=== PATIENT | male | born 1985 | race Caucasian/White ===

== ENCOUNTER 2019-06-17 08:25 | Emergency (ER) | payer SELFPAY ==
--- NOTE | 2019-06-17 08:56 | ED Physician Documentation ---
History of Present Illness - Stated complaint Stated Complaint: R HAND SWELLING - Chief complaint Chief Complaint: Ext Problem - History obtained from History obtained from: Patient - History of Present Illness Timing: How many days ago (7) Pain level max: 10 Pain level now: 8 - Additonal information Additional information: This is a 34-year-old man who presents with complaints that 1 week ago he noticed that his right thumb with swelling little bit around the pad has been increasing in pain now to where he has pain all the way down the to the wrist and also the radial aspect of his right index finger was hurting. 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 He took some Advil this morning the pain was down for up to an 8 out of 10 but the pain is been bad enough that he has not been able to sleep. He is never had anything like this happen before. There was no injury to the thumb. No fever. He is a smoker. Denies any allergies. Review of Systems Constitutional: denies: Fever Musculoskeletal: reports: Extremity pain PD PAST MEDICAL HISTORY - Past Medical History Cardiovascular: None Respiratory: None Neuro: None Endocrine/Autoimmune: None GI: None : None HEENT: None Psych: None Musculoskeletal: None Derm: None - Past Surgical History Past Surgical History: Yes General: Hiatal hernia repair - Present Medications Home Medications: Ambulatory Orders Medication Instructions Recorded Confirmed Amox/Clav 875/125 [Augmentin] 1 each PO Q12H #20 tablet 06/17/19 Hydrocodone/Acetaminophen 1 - 2 each PO Q6H PRN #14 tablet 06/17/19 [Hydrocodon-Acetaminophen 5-325] - Allergies Allergies/Adverse Reactions: Allergies Allergy/AdvReac Type Severity Reaction Status Date / Time No Known Drug Allergies Allergy Verified 06/17/19 08:31 - Social History Does the pt smoke?: Yes Smoking Status: Current every day smoker Does the pt drink ETOH?: Yes ETOH Use: Liquor Does the pt have substance abuse?: No - Immunizations Immunizations are current?: Yes - POLST Patient has POLST: No PD ED PE NORMAL - Vitals Vital signs reviewed: Yes - General General: Alert and oriented X 3, No acute distress, Well developed/nourished - HEENT HEENT: Atraumatic, PERRL, Moist mucous membranes - Cardiac Cardiac: RRR - Respiratory Respiratory: No respiratory distress - Extremities Extremities: Other (The right thumb has obvious erythema around the proximal nail fold but no subungual pus or hematoma. The pad is very edematous it stretched tight enough that there is actually some blanching and right in the central aspect is an area of obvious hemorrhage containing some pus. There is no pain with palpation on the flexor tendon. Is painful to flex the joint but the joint itself does not appear to be swollen and there is no pain with palpation at the IP joint. The right index finger appears normal with full flexion at the MCP PIP and DIP joints. There is no swelling or erythema noted of that digit and no pain with palpation down the flexor tendon into the palm.) Results - Vitals Vitals: Vital Signs - 24 hr 06/17/19 08:31 Temperature 36.9 C Heart Rate 81 Respiratory 16 Rate Blood Pressure 121/85 H O2 Saturation 96 Oxygen O2 Source Room air Procedures - Abscess I&D (location) Irene Pepito thumb Preparation: Chlorhexadine, Lidocaine 2 %, Other ([facility] drain used for tourniquet) Incision: Incised with scalpel, Purulent drainage, Loculations broken, Irrigated, Packed, Culture obtained Other: Pt tolerated well, Dressing applied, Antibiotic prescribed PD MEDICAL DECISION MAKING - ED course Complexity details: d/w patient ED course: There wasIn his thumb pad pus. Blunt dissection with scissors were used to break up the loculations until there was no further pus draining and it was irrigated with saline. Was packed with plain gauze packing and the patient is instructed on wound care. He is placed on Augmentin 875 twice daily, encouraged to use ibuprofen and given a prescription for hydrocodone to help with the acute pain. He will be given a note for off work tonight. Recheck in 2 days. Departure - Departure Disposition: 01 Home, Self Care Clinical Impression: Irene leann wells of right hand Condition: Good Instructions: ED Abscess IandD Follow-Up: [facility] [Provider Group] Prescriptions: Amox/Clav 875/125 [Augmentin] 1 each PO Q12H #20 tablet Hydrocodone/Acetaminophen [Hydrocodon-Acetaminophen 5-325] 1 - 2 each PO Q6H PRN #14 tablet PRN Reason: pain Comments: Keep the bandage clean and dry and try and keep it in place for 48 hours before removal. If it gets wet you should remove it immediately and just put a dry dressing on it. If you need to change the bandage try not to pull the packing out of the incision. Start the Augmentin today and take 1 twice a day. I would recommend that you take probiotics with this to help protect the gut bacteria. These can be purchased [id number] at the pharmacy. Take ibuprofen 3 to 4 tablets every 8 hours with food for the next 48 hours. Take the hydrocodone if needed for pain but do not take additional Tylenol with it or drive or operate machinery. You should be re-seen in 2 days to take the dressing down and packing removal and reassessment on healing. If symptoms are worsening prior to that with progression into the wrist or forearm particularly with swelling or redness, you have a fever or vomiting he should return immediately for reevaluation. Forms: Activity restrictions
[2019-06-17] MEDS ORDERED: LIDOCAINE-MPF 2% 5 ML VIAL SUBQ STA (09:05)
[2019-06-17 09:51] VITALS: BP 137/91
[2019-06-17] MEDS ORDERED: LIDOCAINE 2% 50 ML MDV SUBQ SCH (10:00)
== END 2019-06-17 09:53 | disposition home or self-care (01) ==
LOC: ED 08:25
DX: L03.011 Cellulitis of right finger (principal); F17.200 Nicotine dependence, unspecified, uncomplicated
CPT/HCPCS: 26011; 87070; 87181; 87205; 99283; 99284

== ENCOUNTER 2019-06-25 09:34 | Emergency (ER) | payer SELFPAY ==
[2019-06-25] MEDS ORDERED: BUPIVACAINE 0.5% PF 10 ML VIAL IM ONE (10:09)
[2019-06-25] MEDS ORDERED: BUFFERED LIDOCAINE 10 ML SYRINGE SUBQ STA (10:09)
--- NOTE | 2019-06-25 11:03 | ED Physician Documentation ---
PD HPI WOUND RECHECK - Stated complaint Stated Complaint: FINGER LAC FOLLOW UP - Chief complaint Chief Complaint: Ext Problem - Histroy obtained from History obtained from: Patient - History of Present Illness Location: Right Upper Extremity Timing - onset: How many weeks ago (3) Associated symptoms: Redness, Swelling, Drainage, Pain Similar symptoms before: Diagnosis (felon) Recently seen: Emergency Dept - Additional information Additional information: 34-year-old male has developed a felon in his right thumb and he had this lanced and drained here in the emergency department 8 days ago he had marked improvement in both his pain and Swelling. 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 He is noted increased swelling and pain over the last 2 days despite continuing his antibiotic. He has been switched from Augmentin to sulfamethoxazole trimethoprim. Review of Systems Constitutional: reports: Fatigue. denies: Fever Nose: denies: Congestion Throat: denies: Sore throat Respiratory: denies: Dyspnea, Cough GI: denies: Vomiting PD PAST MEDICAL HISTORY - Past Medical History Past Medical History: Yes Cardiovascular: None Respiratory: None Neuro: None Endocrine/Autoimmune: None GI: None : None HEENT: None Psych: None Musculoskeletal: None Derm: None - Past Surgical History Past Surgical History: Yes General: Hiatal hernia repair - Present Medications Home Medications: Ambulatory Orders Medication Instructions Recorded Confirmed Amox/Clav 875/125 [Augmentin] 1 each PO Q12H #20 tablet 06/17/19 Hydrocodone/Acetaminophen 1 - 2 each PO Q6H PRN #14 tablet 06/17/19 [Hydrocodon-Acetaminophen 5-325] Sulfamethox/Trimeth 800/160 1 each PO BID #14 tablet 06/25/19 [Bactrim Ds 800/160] - Allergies Allergies/Adverse Reactions: Allergies Allergy/AdvReac Type Severity Reaction Status Date / Time No Known Drug Allergies Allergy Verified 06/25/19 09:52 - Social History Does the pt smoke?: Yes Smoking Status: Current every day smoker Does the pt drink ETOH?: Yes Does the pt have substance abuse?: No - Immunizations Immunizations are current?: Yes - POLST Patient has POLST: No PD ED PE NORMAL - Vitals Vital signs reviewed: Yes (hypertensive ) - General General: Alert and oriented X 3, No acute distress, Well developed/nourished, Other (AOB) - HEENT HEENT: Atraumatic, PERRL, EOMI - Respiratory Respiratory: No respiratory distress - Derm Derm: Normal color, Warm and dry, No rash - Extremities Extremities: Other (There is swelling to the distal thumb with a patch of skin over the site of prior I&D that is pale in color/devitalized. The area is draining from the proximal portion of the wound and is tender. There is a new blister along the base of the thumb about 1/3 of the distance around the thumb. It is not tender but fluctuant. The swelling in general is improved from prior by report of the patient, nurse taking care of him on both visits and from the description provided by Dr. London. There is no tenderenss today to the palm of the hand the index or the wrist. There is no sign of tenosynovitis. 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, No motor deficit, No sensory deficit, Normal speech Eye Opening: Spontaneous Motor: Obeys Commands Verbal: Oriented GCS Score: 15 - Psych Psych: Normal mood, Normal affect Results - Vitals Vitals: Vital Signs - 24 hr 06/25/19 06/25/19 09:47 11:12 Temperature 36.7 C 36.7 C Heart Rate 99 87 Respiratory 14 16 Rate Blood Pressure 118/96 H 124/95 H O2 Saturation 99 97 Oxygen O2 Source Room air Procedures - Abscess I&D (location) thumb Preparation: Confirmed with ultrasound, Chlorhexadine, Other (lidocaine/bupivicaine digital block with local suplimentation.) Incision: Incised with scalpel, Loculations broken, Irrigated, Other (A second blister is also inscised with minimal drainage. There is not much drainage from either area. The swelling is some improved at discharge.) Other: Dressing applied, Antibiotic prescribed PD MEDICAL DECISION MAKING - ED course Complexity details: reviewed results, re-evaluated patient, considered differential, d/w patient ED course: 34-year-old male with a felon that was incised and drained 8 days ago has noted increase in his swelling and tenderness to the distal portion of his thumb. He is not having the same swelling that he had with his whole thumb and running up into the index finger and down into the hand. Today it is confined to the distal portion of the thumb and there is a new blister as well. I queried the patient about injury to the hand and he adamantly admitted he did not have any idea of any kind of injury he possibly could have had to his hand including prolonged compressive forces. At the conclusion of the procedure he did indicate that he had been using a bandage to try and hold the edges of the wound together I recommended he discontinue this practice and I suspect this is why he had the increased swelling. Possibly why he had the blister as well. The expectation is improvement with a change in his dressing. He is prescribed another 7 days of Septra and he is taken off work for 3 days. Departure - Departure Disposition: 01 Home, Self Care Clinical Impression: Felon of finger of right hand Condition: Stable Instructions: ED Abscess IandD Follow-Up: Daylin Benedict PA [Provider Admit Priv/Credential] - Prescriptions: Sulfamethox/Trimeth 800/160 [Bactrim Ds 800/160] 1 each PO BID #14 tablet Forms: Activity restrictions Discharge Date/Time: 06/25/19 11:18
[2019-06-25 11:13] VITALS: BP 124/95
== END 2019-06-25 11:18 | disposition home or self-care (01) ==
LOC: ED 09:34
DX: L03.011 Cellulitis of right finger (principal); F17.200 Nicotine dependence, unspecified, uncomplicated
CPT/HCPCS: 26011; 99282; 99284

== ENCOUNTER 2022-12-30 09:54 | Outpatient (CLI) | payer SELFPAY | END 2022-12-30 23:59 | disposition short-term general hospital (02) | LOC: EMS 09:54 | DX: K92.0 Hematemesis (principal); K92.1 Melena; I95.9 Hypotension, unspecified | CPT/HCPCS: A0425; A0427 ==

== ENCOUNTER 2023-08-05 02:31 | Emergency (ER) | payer SELFPAY ==
--- NOTE | 2023-08-05 02:59 | ED Physician Documentation ---
History of Present Illness - Stated complaint Stated Complaint: ABD PX - Chief complaint Chief Complaint: Abd Pain - History obtained from History obtained from: Patient - Additonal information Additional information: 38yM with pmh alcohol abuse, recently sober 1 week ago, p/w malaise, weakness, abdominal ascites and pain over the past couple weeks, worsening X 2 days. denies fever, n/v/d urinary sx, cough or cp. he does have mild subjective dyspnea. PD PAST MEDICAL HISTORY - Past Medical History Past Medical History: Yes Cardiovascular: None Respiratory: None Neuro: None Endocrine/Autoimmune: None GI: Cirrhosis : None HEENT: None Psych: None Musculoskeletal: None Derm: None - Past Surgical History Past Surgical History: Yes General: Hiatal hernia repair - Present Medications Home Medications: Ambulatory Orders Medication Instructions Recorded Confirmed No Known Home Medications 08/05/23 08/05/23 - Allergies Allergies/Adverse Reactions: Allergies Allergy/AdvReac Type Severity Reaction Status Date / Time No Known Drug Allergies Allergy Verified 08/05/23 02:53 - Social History Does the pt smoke?: Yes Smoking Status: Current every day smoker Does the pt drink ETOH?: Yes Does the pt have substance abuse?: No Substance Use and Type: Marijuana - Immunizations Immunizations are current?: Yes - POLST Patient has POLST: No PD ED PE NORMAL - Vitals Vital signs reviewed: Yes - General General: Alert and oriented X 3, No acute distress, Well developed/nourished - HEENT HEENT: Atraumatic, PERRL, EOMI - Neck Neck: Supple, no meningeal sign - Cardiac Cardiac: Other (tachycardic rate, regular rhythm) - Respiratory Respiratory: No respiratory distress, Clear bilaterally - Abdomen Abdomen: Other (moderately distended, soft abdomen. discomfort to palpation diffusely) - Rectal Rectal: Pt declined - Derm Derm: Normal color, Warm and dry Results - Vitals Vitals: Vital Signs - 24 hr 08/05/23 08/05/23 02:35 02:52 Temperature 37.6 C Heart Rate 116 H 80 Respiratory 16 19 Rate Blood Pressure 110/56 L 116/60 O2 Saturation 100 98 Oxygen O2 Source Room air - Labs Labs: Laboratory Tests 08/05/23 08/05/23 08/05/23 02:58 02:58 02:58 WBC 10.8 RBC 2.33 L Hgb 5.4 L* Hct 17.8 L* MCV 76.4 L MCH 23.2 L MCHC 30.3 L RDW 28.5 H Plt Count 141 Neut # (Auto) 6.5 Lymph # (Auto) 1.5 Blair # (Auto) 2.5 H Eos # (Auto) 0.2 Baso # (Auto) 0.1 Absolute Nucleated RBC 0.12 Total Counted CASINO BANKER Band Neuts % (Manual) CASINO [employer]ANKER Reactive Lymphs % (Man) CASINO BANKER Abnorm Lymph % (Manual) CASINO BANKER Nucleated RBC % 1.1 Neutrophils # (Manual) CASINO [employer]ER Lymphocytes # (Manual) CASINO [employer]ER Monocytes # (Manual) CASINO B[employer]ER Eosinophils # (Manual) CASINO B[employer]ER Basophils # (Manual) CASINO [employer]ER Differential Comment MANUAL=AUTO DIFF Platelet Estimate NORMAL (130-450,000) Platelet Morphology RARE GIANT PLATELETS RBC Morph Micro Appear 2+ POIKILOCYTOSIS PT 21.3 H INR 2.0 H Sodium 125 L Potassium 3.6 Chloride 94 L Carbon Dioxide 24 Anion Gap 7.0 BUN 12 Creatinine 0.7 Estimated GFR (MDRD) 125 Glucose 122 H Calcium 7.5 L Total Bilirubin 3.3 H AST 75 H ALT 33 Alkaline Phosphatase 107 Total Protein 5.3 L Albumin 2.7 L Globulin 2.6 Albumin/Globulin Ratio 1.0 Lipase 259 H Urine Color Urine Clarity Urine pH Ur Specific [place] Urine Protein Urine Glucose (UA) Urine Ketones Urine Occult Blood Urine Nitrite Urine Bilirubin Urine Urobilinogen Ur Leukocyte Esterase Ur Microscopic Review Urine Culture Comments Blood Type Blood Type Recheck Antibody Screen Crossmatch IS Only 08/05/23 08/05/23 08/05/23 02:58 03:33 03:33 WBC RBC Hgb Hct MCV MCH MCHC RDW Plt Count Neut # (Auto) Lymph # (Auto) Blair # (Auto) Eos # (Auto) Baso # (Auto) Absolute Nucleated RBC Total Counted Band Neuts % (Manual) Reactive Lymphs % (Man) Abnorm Lymph % (Manual) Nucleated RBC % Neutrophils # (Manual) Lymphocytes # (Manual) Monocytes # (Manual) Eosinophils # (Manual) Basophils # (Manual) Differential Comment Platelet Estimate Platelet Morphology RBC Morph Micro Appear PT INR Sodium Potassium Chloride Carbon Dioxide Anion Gap BUN Creatinine Estimated GFR (MDRD) Glucose Calcium Total Bilirubin AST ALT Alkaline Phosphatase Total Protein Albumin Globulin Albumin/Globulin Ratio Lipase Urine Color DARK YELLOW Urine Clarity CLEAR Urine pH 6.5 Ur Specific [place] 1.015 Urine Protein TRACE Urine Glucose (UA) NEGATIVE Urine Ketones TRACE Urine Occult Blood NEGATIVE Urine Nitrite NEGATIVE Urine Bilirubin MODERATE H Urine Urobilinogen 1 (NORMAL) Ur Leukocyte Esterase NEGATIVE Ur Microscopic Review NOT INDICATED Urine Culture Comments NOT INDICATED Blood Type O POSITIVE Blood Type Recheck O POSITIVE Antibody Screen NEGATIVE Crossmatch IS Only See Detail PD Medical Decision Making - ED course ED course: 38yM with pmh alcohol abuse/liver cirrhosis p/w weakness and abdominal pain X 2 weeks. cbc, abdominal panel ordered. ivf and 6mg iv morphine provided with improvement. patient is anemic on labwork and blood transfusion ordered. also with hyponatremia and elevated LFTs. He will be admitted to observation. [facility] but patient in conversation with him said he had a history of esophageal variceal banding and also has been having melenotic stools intermittently this week. He was just at [facility] on monday for blood transfusion. In light of his history of variceal banding, Dr. Crook was not comfortable with admitting here and cancelled the admission. Telehealth is requesting we transfer the patient to higher level of care. In conversation with the patient I learned he is not open to being transferred. plan is to transfuse 2 U PRBC in the ED and then recheck hemoglobin. CT report shows cirrhosis and moderate ascites with mesenteric lymph nodes visible. I have low suspicion for peritonitis given patient is not having fevers and has benign abdominal exam on re-exam. Patient is still receiving blood transfusions at 7am shift change. Plan to endorse to incoming daytime ED MD. Departure - Departure Disposition: ED Place in Observation Clinical Impression: Ascites, Anemia Condition: Fair
[2023-08-05] MEDS: SODIUM CHLORIDE 0.9% 500 ML IV STA (03:11)
[2023-08-05] MEDS: MORPHINE 2 MG/ML CARPUJECT IVP STA (03:11)
[2023-08-05 03:15] LABS: PT - PROTHROMBIN TIME 21.3 secs (9.9-12.6)
[2023-08-05 03:20] LABS: BASOPHILS # (AUTO) 0.1 10^3/uL (0.0-0.1); BASOPHILS % (AUTO) 0.9 %; EOSINOPHILS # (AUTO) 0.2 10^3/uL (0.0-0.7); EOSINOPHILS % (AUTO) 1.9 %; LYMPHOCYTES # (AUTO) 1.5 10^3/uL (1.5-3.5); LYMPHOCYTES % (AUTO) 14.2 %; MEAN CORPUSCULAR HEMOGLOBIN 23.2 pg (27.0-31.0); MEAN CORPUSCULAR HGB CONC 30.3 g/dL (32.0-36.0); MEAN CORPUSCULAR VOLUME 76.4 fL (80.0-94.0); MONOCYTES # (AUTO) 2.5 10^3/uL (0.0-1.0); MONOCYTES % (AUTO) 22.7 %; NEUTROPHILS # (AUTO) 6.5 10^3/uL (1.5-6.6); NEUTROPHILS % (AUTO) 59.8 %; NRBC ABSOLUTE COUNT (AUTO) 0.12 x10^3/uL; NUCLEATED RED BLOOD CELLS AUTO 1.1 /100WBC; PLT - PLATELET COUNT 141 10^3/uL (130-450); RED BLOOD COUNT 2.33 10^6/uL (4.70-6.10); RED CELL DISTRIBUTION WIDTH 28.5 % (12.0-15.0); WHITE BLOOD COUNT 10.8 x10^3/uL (4.8-10.8)
[2023-08-05 03:26] LABS: ALBUMIN 2.7 g/dL (3.2-5.5); BILIRUBIN,TOTAL 3.3 mg/dL (0.2-1.0); CALCIUM 7.5 mg/dL (8.5-10.3); CREATININE 0.7 mg/dL (0.6-1.3); POTASSIUM 3.6 mmol/L (3.5-4.5); TOTAL PROTEIN 5.3 g/dL (6.4-8.9)
[2023-08-05] MEDS ORDERED: ONDANSETRON 4 MG/2 ML VIAL ONE (03:30)
[2023-08-05] MEDS ORDERED: iohexoL-300 100 ML VIAL ONE ×2 (03:31→04:14)
[2023-08-05 03:34] LABS: HCT - HEMATOCRIT 17.8 % (42.0-52.0); HGB - HEMOGLOBIN 5.4 g/dL (14.0-18.0)
[2023-08-05] MEDS ORDERED: SODIUM CHLORIDE FLUSH 0.9% 10 ML SYRINGE IVP PRN (03:35)
[2023-08-05] MEDS: ONDANSETRON 4 MG/2 ML VIAL IVP PRN (03:39)
[2023-08-05 03:46] LABS: BILIRUBIN,URINE MODERATE (NEGATIVE); GLUCOSE, URINE (UA) NEGATIVE (NEGATIVE); KETONES,URINE (UA) TRACE mg/dL (NEGATIVE); LEUKOCYTE ESTERASE, URINE NEGATIVE (NEGATIVE); NITRITE,URINE NEGATIVE (NEGATIVE); OCCULT BLOOD,URINE NEGATIVE (NEGATIVE); PH,URINE 6.5 PH (5.0-7.5); PROTEIN,URINE TRACE mg/dL (NEGATIVE); UROBILINOGEN,URINE 1 (NORMAL) E.U./dL (NORMAL)
[2023-08-05 03:49] LABS: CLARITY,URINE CLEAR (CLEAR)
[2023-08-05 04:03] LABS: PLATELET ESTIMATE, MANUAL NORMAL (130-450,000) (NORMAL); PLATELET MORPHOLOGY RARE GIANT PLATELETS (NORMAL)
[2023-08-05] MEDS: iohexoL-300 100 ML VIAL IVP ONE (04:44)
[2023-08-05 05:02] LABS: DIFFERENTIAL COMMENT MANUAL=AUTO DIFF
[2023-08-05] MEDS: ONDANSETRON 4 MG/2 ML VIAL IVP STA (06:41)
--- NOTE | 2023-08-05 09:32 | CT Report ---
PROCEDURE: CT abdomen pelvis with contrast INDICATIONS: diffuse abdominal pain, hx liver failure TECHNIQUE: Helical axial CT of the abdomen and pelvis was obtained after intravenous contrast adminis tration and reformatted in multiple planes. Radiation dose reduction was achieved using automated exp osure control or adjustment of mA and/or kV according to patient size. COMPARISON: None FINDINGS: Lower thorax: [Small pleural effusion with compressive atelectasis No hiatal hernia. Liver: Hepatic irregularity with micronodular scalloping of the hepatic capsule. The portal vein trey ears patent. No focal mass lesion. Biliary system: No calcified cholelithiasis or pericholecystic inflammation. No evidence of bile du ct dilatation. Pancreas: Unremarkable without mass or inflammation evident. Spleen: Spleen is enlarged to 16 cm Adrenals: Normal morphology and density. Reproductive system: Unremarkable as visualized. Urinary system: Normal renal size and attenuation. No renal calculi, hydronephrosis, or solid mass p resent. Urinary bladder unremarkable. Gastrointestinal system: The bowel appears unremarkable with no evidence of bowel obstruction or inf lammation. The stomach appears unremarkable. Peritoneal spaces: Moderate abdominal and pelvic ascites Vasculature: Multiple mesenteric venous varices noted particularly in the right lower quadrant Abdominal wall: Abdominal wall is intact without evidence of ventral or inguinal hernias. Musculoskeletal: Normal bone mineralization. No acute fractures. IMPRESSION: Hepatic cirrhosis, splenomegaly, ascites and multiple venous varices. Portal vein appears patent. No abscess. Note: This final report is concordant with the preliminary after-hours interpretation provided by [facility], [facility] Reviewed by: Misael Holden MD on 08/05/2023 8:31 AM JEROD Approved by: Misael Holden MD on 08/05/2023 8:31 AM AKLAUREANO Station ID: [id number]
--- NOTE | 2023-08-05 09:55 | ED Physician Documentation ---
ED Addendum - Addendum Addendum: 08/05/23 09:48 Felipe Bazan is a 38-year-old male with a history of alcoholic cirrhosis and esophageal and gastric varices who presented to [facility] 6 days ago with a history of 3 days of vomiting blood and 2 days of melena. He arrived in shock and was transfused blood and had banding of his varacies. He became concerned when he felt that they did not know his name and thought he had had a stroke. He left the hospital AGAINST MEDICAL ADVICE the day after having his banding done. He presents to the emergency department today after not being able to go to work this week secondary to shortness of breath with exertion. He has had dark stool but he has not had vomiting. His ascites is more prominent than prior to the admission. An attempt to admit the patient to our facility was met with resistance secondary to his history of varacies that our institution is unable to accommodate. 08/05/23 15:00 The patient has received 2 units of blood and a transfusion and he has increased his hemoglobin up to 6.5 and his hematocrit up to 21.We called our friends at [facility] and Dr. Moura the on-call aircraft line assembler recommends transfer the patient to their facility for further care and he will consult. I have subsequently spoken to the hospitalist Dr. Sanchez who recommends we give a 3rd unit of blood while awaiting transfer and placed the patient on a PPI and octreotide. Departure - Departure Disposition: 02 Transfer Acute Care Hosp Clinical Impression: Ascites Qualifiers: Ascites type: due to alcoholic cirrhosis Qualified Code(s): K70.31 - Alcoholic cirrhosis of liver with ascites Anemia Qualifiers: Anemia type: other cause Other causes of anemia: acute posthemorrhagic Qualified Code(s): D62 - Acute posthemorrhagic anemia Condition: Fair
[2023-08-05] MEDS: SODIUM CHLORIDE FLUSH 0.9% 10 ML SYRINGE IVP SCH (10:52)
[2023-08-05] MEDS: PHYTONADIONE 10 MG/ML AMP IVP STA (11:33)
[2023-08-05 11:53] LABS: HGB - HEMOGLOBIN 6.5 g/dL (14.0-18.0)
[2023-08-05] MEDS ORDERED: PANTOPRAZOLE 80 MG in SODIUM CHLORIDE 0.9% 100ML 100 ML IV STA (15:03)
[2023-08-05] MEDS: NICOTINE 21 MG PATCH TOP SCH (15:43)
[2023-08-05 16:25] VITALS: BP 124/69; O2SAT 99
[2023-08-05] MEDS: PANTOPRAZOLE 80 MG in SODIUM CHLORIDE 0.9% 100ML 100 ML IV ONE (16:38)
[2023-08-05] MEDS: OCTREOTIDE 500 MCG in SODIUM CHLORIDE 0.9% 100ML 99 ML IV STA (17:26)
[2023-08-05] MEDS ORDERED: HYDROmorphone 0.5 MG/0.5 ML SYRINGE IVP PRN (18:00)
== END 2023-08-05 18:20 | disposition short-term general hospital (02) ==
LOC: ED 02:31 → INTOOBSV 03:35 → MS2 03:35 → UNDOADMOB 03:35 → MS2 11:51 → MS3 11:51 → UNDODISOB 16:50
DX: K70.31 Alcoholic cirrhosis of liver with ascites (principal); I85.10 Secondary esophageal varices without bleeding; I86.4 Gastric varices; K92.1 Melena; D62 Acute posthemorrhagic anemia; E87.1 Hypo-osmolality and hyponatremia; R94.5 Abnormal results of liver function studies; F17.200 Nicotine dependence, unspecified, uncomplicated; Z87.19 Personal history of other diseases of the digestive system
CPT/HCPCS: 36415; 36430; 74177; 80053; 81003; 83690; 85014; 85018; 85025; 85610; 86850; 86900; 86901; 86920; 96374; 99285; A9270; P9016; Q9967; 81001; 87086